=== PATIENT | male | born 1960 | race Caucasian/White ===

== ENCOUNTER 2019-06-08 18:16 | Emergency (ER) | payer OTHER ==
[~2019-06-08] VITALS: Ht 170.2 cm; Wt 81.7 kg
[~2019-06-08 18:16] MED LIST: HYDROCORTISONE; LIPITOR40 MG; PERCOCET 5-3251 EACH PO; PHENERGAN 25 MG25 M1 PO; SYNTHROID; VICODIN; [UNRECOGNIZED DRUG - OTHER]
[2019-06-08] MEDS ORDERED: SOMAVERT SUBQ (18:32)
[2019-06-08] MEDS ORDERED: LEVO-T88 MCG PO (18:33)
[2019-06-08] MEDS ORDERED: ALLOPURINOL 10100 M1 PO (18:34)
[2019-06-08] MEDS ORDERED: METFORMIN HCL500 MG PO (18:34)
[2019-06-08 19:08] LABS: URINE BILIRUBIN NEGATIVE (Negative); URINE BLOOD 3+ (Negative); URINE CLARITY CLEAR; URINE COLOR YELLOW; URINE GLUCOSE-RANDOM NEGATIVE (Negative); URINE KETONES NEGATIVE (Negative); URINE LEUKOCYTES-REFLEX NEGATIVE (Negative); URINE NITRITE-REFLEX NEGATIVE (Negative); URINE PROTEIN NEGATIVE (Negative); URINE SPECIFIC GRAVITY 1.015 (1.005-1.030); URINE UROBILINOGEN 0.2 E.U./dl (0.2-1.0)
[2019-06-08 19:37] LABS: SQUAMOUS 0-3 Few /LPF (0-3); URINE WBC-REFLEX 0-5 Rare /HPF (0-5)
[2019-06-08 19:38] LABS: BACTERIA-REFLEX 1-9 Few /HPF (None Seen); CASTS None Seen /LPF (None Seen); CRYSTALS None Seen /LPF (None Seen)
[2019-06-08 19:50] LABS: ABSOLUTE BASOPHILS 0.1 thou/uL (0.0-0.2); ABSOLUTE EOSINOPHILS 0.1 thou/uL (0.0-0.7); ABSOLUTE LYMPHOCYTES 0.7 thou/uL (0.8-5.3); ABSOLUTE MONOCYTES 1.5 thou/uL (0.0-1.2); ABSOLUTE NEUTROPHILS 11.5 thou/uL (1.6-8.1); BASOPHILS 0.4 %; EOSINOPHILS 0.4 %; HEMATOCRIT 44.2 % (42.0-52.0); HEMOGLOBIN 14.9 gm/dL (14.0-18.0); MCH 31.2 pg (26.0-34.0); MCHC 33.8 g/dL (28.0-37.0); MCV 92.1 fL (80.0-100.0); NUCLEATED RBCS 0 /100WBC; PLATELET COUNT* 220 thou/uL (150-400); POLYS 83.2 %; RDW-CV 14.1 % (10.5-14.5); WBC 13.8 thou/uL (4.0-11.0)
[2019-06-08 20:01] LABS: CALCIUM 9.5 mg/dL (8.5-10.1); CREATININE 1.5 mg/dL (0.6-1.3); POTASSIUM 4.6 mmol/L (3.5-5.1)
[2019-06-08 20:06] LABS: ALBUMIN 4.5 g/dL (3.4-5.0); TOTAL BILIRUBIN 0.7 mg/dL (<0.1-1.0); TOTAL PROTEIN 7.7 g/dL (6.4-8.2)
[2019-06-08] MEDS ORDERED: FLOMAX0.4 MG PO (20:59)
[2019-06-08] MEDS ORDERED: IBUPROFEN 800800 M1 PO (20:59)
[2019-06-08] MEDS ORDERED: PERCOCET PO (20:59)
[2019-06-08] MEDS ORDERED: CIPRO500 M1 PO (20:59)
[2019-06-08] MEDS ORDERED: ONDANSETRON HCL4 M2 PO (20:59)
[2019-06-08 21:13] VITALS: BP 138/85
== END 2019-06-08 21:14 | disposition home or self-care (01) ==
LOC: M.ERS 18:16
PROVIDERS: Nurse Practitioner Family
DX: N20.1 Calculus of ureter (principal); E03.9 Hypothyroidism, unspecified; Z87.442 Personal history of urinary calculi

== ENCOUNTER 2019-06-10 13:19 | Inpatient (IN) | payer OTHER ==
[~2019-06-10] VITALS: Ht 170.2 cm; Wt 83.4 kg
[~2019-06-10 13:19] MED LIST changes: +ALLOPURINOL 10100 M1 PO; +CIPRO500 M1 PO; +FLOMAX0.4 MG PO; +IBUPROFEN 800800 M1 PO; +LEVO-T88 MCG PO; +METFORMIN HCL500 MG PO; +ONDANSETRON HCL4 M2 PO; +PERCOCET PO; +SOMAVERT SUBQ
[2019-06-10 14:35] VITALS: BP 127/71
[2019-06-10 15:30] VITALS: BP 136/72
[2019-06-10] MEDS ORDERED: SIMVASTATIN20 MG PO (15:58)
[2019-06-10] MEDS ORDERED: CORTEF5 MG PO (15:59)
[2019-06-10] MEDS ORDERED: CORTEF10 MG PO (15:59)
[2019-06-10 16:15] LABS: URINE BILIRUBIN NEGATIVE (Negative); URINE BLOOD 2+ (Negative); URINE COLOR YELLOW; URINE GLUCOSE-RANDOM NEGATIVE (Negative); URINE KETONES NEGATIVE (Negative); URINE LEUKOCYTES-REFLEX NEGATIVE (Negative); URINE NITRITE-REFLEX NEGATIVE (Negative); URINE PROTEIN NEGATIVE (Negative); URINE SPECIFIC GRAVITY 1.025 (1.005-1.030); URINE UROBILINOGEN 0.2 E.U./dl (0.2-1.0)
[2019-06-10 16:17] LABS: URINE CLARITY HAZY
[2019-06-10 16:20] LABS: ABSOLUTE BASOPHILS 0.1 thou/uL (0.0-0.2); ABSOLUTE EOSINOPHILS 0.3 thou/uL (0.0-0.7); ABSOLUTE MONOCYTES 1.2 thou/uL (0.0-1.2); ABSOLUTE NEUTROPHILS 7.7 thou/uL (1.6-8.1); BASOPHILS 0.6 %; EOSINOPHILS 3.2 %; HEMATOCRIT 39.8 % (42.0-52.0); HEMOGLOBIN 13.8 gm/dL (14.0-18.0); LYMPHOCYTES 9.3 %; MCHC 34.7 g/dL (28.0-37.0); MCV 92.2 fL (80.0-100.0); MONOCYTES 11.7 %; MPV 8.8 fl. (7.2-11.1); NUCLEATED RBCS 0 /100WBC; PLATELET COUNT* 177 thou/uL (150-400); POLYS 75.2 %; RBC 4.31 mil/uL (4.50-6.00); WBC 10.2 thou/uL (4.0-11.0)
[2019-06-10 16:26] LABS: BACTERIA-REFLEX None Seen /HPF (None Seen); CASTS None Seen /LPF (None Seen); CRYSTALS None Seen /LPF (None Seen); SQUAMOUS 0-3 Few /LPF (0-3); URINE RBC 3-10 Few /HPF (0-2); URINE WBC-REFLEX None Seen /HPF (0-5)
[2019-06-10 16:29] LABS: CALCIUM 8.9 mg/dL (8.5-10.1); CREATININE 1.5 mg/dL (0.6-1.3); POTASSIUM 4.1 mmol/L (3.5-5.1)
[2019-06-10 16:42] VITALS: BP 127/71
[2019-06-10 17:36] VITALS: BP 132/76
[2019-06-10 19:00] VITALS: BP 128/72
[2019-06-10 20:08] VITALS: BP 120/75
[2019-06-11 08:57] VITALS: BP 116/71
[2019-06-11] MEDS ORDERED: OXYBUTYNIN 5 MG5 M2 PO (09:27)
[2019-06-11] MEDS ORDERED: NORCO 5-325 TA1 EAC1 PO (09:27)
[2019-06-11 14:26] VITALS: BP 116/71
--- NOTE | 2019-06-15 10:06 | OP ---
[address] [address] OPERATIVE REPORT Name: JULIO HERRERA Room: [address] IN M.R.#: [id number] Admission: 06/10/19 Attend Phys: Maryann Farias Discharge: 06/11/19 Date of : 64 Report #: [id number] THIS REPORT FOR: //name// CC: Anselmo Bryan DATE OF SERVICE: 06/10/2019 PREOPERATIVE DIAGNOSIS: Bilateral ureteral stones. POSTOPERATIVE DIAGNOSIS: Bilateral ureteral stones. PROCEDURE PERFORMED: 1. Cystoscopy. 2. Bilateral retrograde pyelogram. 3. Bilateral ureteroscopy with laser lithotripsy and stone basket extraction. 4. Bilateral ureteral stent placement. STAFF: Dr. Anselmo Sanchez. COMPLICATIONS: None. DRAINS: 1. A 4.5-Tajik x 26-cm left ureteral stent. 2. A 6-Tajik x 26-cm right ureteral stent. SPECIMENS: Bilateral ureteral stones. ESTIMATED BLOOD LOSS: 0 mL. INDICATIONS: The patient is a 58-year-old male with a history of nephrolithiasis who presented to the ER with right-sided flank pain, a CT demonstrated bilateral obstructing ureteral stones and hydronephrosis. He had a mild bump in his creatinine at 1.5. After thorough discussion, decision was made to proceed with ureteroscopy. DESCRIPTION OF PROCEDURE: On 06/10/2019, after consent was obtained, the patient was taken to the operating room and placed in supine position. He was then placed under general anesthesia. He received preoperative IV Cipro for antibiotic coverage. He was then placed in dorsal lithotomy and his genitals were prepped and draped in normal sterile fashion. Next, I began the procedure by inserting the 22.5-Tajik rigid cystoscope via the urethra without any difficulty. Once in the bladder, identified the left ureteral orifice. This was cannulated with a sensor wire, which was passed up in the upper pole. I could see a stone emanating from the UO at this point[place] [address] OPERATIVE REPORT Name: JULIO HERRERA Room: [address] IN ..#: [id number] Admission: 06/10/19 Attend Phys: Maryann Farias Discharge: 06/11/19 Date of : 64 Report #: [id number] withdrawn. I then inserted a semirigid ureteroscope. I passed this up alongside the sensor wire into the UVJ. I used a 365 micron laser fiber to break up into multiple smaller fragments. A 1.9 basket was then utilized to evacuate the ureter of all stone fragments. I made a final pass of the ureteroscope up to the level of the UPJ and there was no evidence of any further stone burden. At this point through the ureteroscope, I passed a 5-Tajik open-ended stent over the sensor wire. Retrograde pyelogram demonstrated a normal caliber collecting system without any filling defects or extravasation. The wire was then replaced and I backloaded the cystoscope over the sensor wire. I selected a 4.5-Tajik x 26 cm stent and passed this up to the upper pole under fluoroscopic guidance, had a good coil in the urinary bladder under direct visual guidance. I then turned my attention to the right ureteral orifice, which was cannulated with a sensor wire, which was passed up to the renal pelvis under fluoroscopic guidance. The scope was then withdrawn. I then inserted a semirigid ureteroscope and passed this up alongside the sensor wire into the distal right ureter where there was a stone residing. Again, the 365 micron laser fiber was utilized to break this up into multiple smaller fragments. The 1.5 nitinol basket was then utilized to evacuate all measurable stone burden. I passed the scope up to the level of the UPJ. There was no evidence of any further stone burden. At this point, I withdrew the ureteroscope. I passed a 5-Tajik open-ended stent over the sensor wire. Retrograde pyelogram demonstrated normal caliber ureter, renal pelvis without any extravasation. I then replaced the sensor wire. I backloaded the cystoscope over the sensor wire. At this point, I selected a 6-Tajik x 26-cm stent, which was passed up the upper pole under fluoroscopic guidance, had a good coil in the urinary bladder under direct visual guidance. The patient's bladder was emptied. He was awakened from anesthesia. <ELECTRONICALLY SIGNED> By: Anselmo Sanchez MD 06/15/19 [id number] 1949Anselmo Sanchez MD /elvira
[2019-06-20 14:08] LABS: STONE CA OXALATE MONOHYDRATE 97 % (()); STONE COLOR Brown (()); STONE WEIGHT 57.2 mg (())
== END 2019-06-11 15:30 | disposition home or self-care (01) | DRG 661 ==
LOC: M.3W 13:19
PROVIDERS: Urology; ADMIT Internal Medicine
PROC: 0TC68ZZ Extirpation of Matter from Right Ureter, Via Natural or Artificial Opening Endoscopic (ICD-10-PCS; principal; 2019-06-10)
PROC: 0T788DZ Dilation of Bilateral Ureters with Intraluminal Device, Via Natural or Artificial Opening Endoscopic (ICD-10-PCS; principal; 2019-06-10)
PROC: BT141ZZ Fluoroscopy of Kidneys, Ureters and Bladder using Low Osmolar Contrast (ICD-10-PCS; principal; 2019-06-10)
PROC: 0TC78ZZ Extirpation of Matter from Left Ureter, Via Natural or Artificial Opening Endoscopic (ICD-10-PCS; principal; 2019-06-10)
DX: N20.1 Calculus of ureter (principal); Z79.899 Other long term (current) drug therapy